=== PATIENT | female | born 1955 | race Caucasian/White ===

== ENCOUNTER 2017-08-12 06:27 | Inpatient (IN) | payer OTHER ==
[~2017-08-12 06:27] MED LIST: Sodium Chloride 0.9% 10 ML Syringe FLUSH PRN; Sodium Chloride 0.9% 2.5 ML Syringe FLUSH PRN
[2017-08-12] MEDS: Lactated Ringers 1,000 ML IV SCH ×2 (07:03→20:07)
[2017-08-12] MEDS ORDERED: Scopolamine 1.5 MG Transdermal Patch TRDERM PRN (07:09)
--- NOTE | 2017-08-12 07:09 | PCM.PREANE ---
Preanesthetic Assessment - Anesthesia/Transfusion/Family Hx Anesthesia History: Prior Anesthesia Reaction Family History of Anesthesia Reaction: No Transfusion History: Prior Transfusion Without Reaction Intubation History: Unknown - Review of Systems General: No Symptoms Pulmonary: No Symptoms Cardiovascular: No Symptoms Gastrointestinal: No Symptoms Neurological: No Symptoms Other: Reports: None - Physical Assessment Height: 1.55 m Weight: 76.657 kg ASA Class: 3 Mental Status: Alert & Oriented x3 Airway Class: Mallampati = 2 Dentition: Reports: Normal Dentition Thyro-Mental Finger Breadths: 2 Mouth Opening Finger Breadths: 3 ROM/Head Extension: Full Lungs: Clear to Auscultation, Normal Respiratory Effort Cardiovascular: Regular Rate, Regular Rhythm - Allergies Allergies/Adverse Reactions: Allergies Allergy/AdvReac Type Severity Reaction Status Date / Time antibiotics Allergy Other Uncoded 08/10/17 10:52 - Blood Blood Available: No - Anesthesia Plan Pre-Op Medication Ordered: None - Acknowledgements Anesthesia Type Planned: General Anesthesia Pt an Appropriate Candidate for the Planned Anesthesia: Yes Alternatives and Risks of Anesthesia Discussed w Pt/Guardian: Yes Pt/Guardian Understands and Agrees with Anesthesia Plan: Yes PreAnesthesia Questionnaire HEENT History: Reports: Other (See Below) Other HEENT History: wears glasses Gastrointestinal History: Reports: Inflammatory Bowel Disease Other Gastrointestinal History: hx of Ulcerative Colitis, s/p total colectomy with ileostomy Endocrine/Metabolic History: Reports: Obesity/BMI 30+ Hematologic History: Reports: Other (See Below) Other Hematologic History: states hx of systemic yeast infection after taking antibiotics in 2002- has not taken antibiotics since Oncologic (Cancer) History: Reports: Breast (infiltrating ductal carcinoma left breast) Other Oncologic History: currently - Past Surgical History Head Surgeries/Procedures: Reports: None GI Surgical History: Reports: Colon Other GI Surgeries/Procedures: hx of Subtotal Colectomy with Ileostomy Female Surgical History: Reports: Cystectomy Other Female Surgeries/Procedures: hx of ovarian cystectiomy - SUBSTANCE USE Smoking Status *Q: Never Smoker Recreational Drug Use History: No - HOME MEDS Home Medications: Home Meds Olga Lidia Aspirin 1 - 2 tab PO ASDIRECTED PRN 08/10/17 [History] [place] Extract 1 cap PO BID 08/10/17 [History] [facility] Essential Oils 1 cap PO DAILY 08/10/17 [History] - CURRENT (IN HOUSE) MEDS Current Meds: Current Medications Lactated Ringer's (Ringers, Lactated) 1,000 mls @ 125 mls/hr IV ASDIRECTED TOBY Last Admin: 08/12/17 07:03 Dose: 125 mls/hr Sodium Chloride (Saline Flush) 10 ml FLUSH ASDIRECTED PRN PRN Reason: Keep Vein Open Sodium Chloride (Saline Flush) 2.5 ml FLUSH ASDIRECTED PRN PRN Reason: Keep Vein Open
[2017-08-12] MEDS ORDERED: Propofol 200 MG/20 ML SDV ONE (07:17)
[2017-08-12] MEDS ORDERED: fentaNYL 250 MCG/5 ML SDV ONE (07:17)
[2017-08-12] MEDS ORDERED: Midazolam 1 MG/ML 2 ML SDV ONE (07:17)
[2017-08-12] MEDS ORDERED: Methylene Blue 50 MG/10 ML Ampule ONE (07:19)
[2017-08-12] MEDS ORDERED: Bupivacaine 0.5% 10 ML SDV ONE (07:20)
[2017-08-12] MEDS ORDERED: Rocuronium 10 MG/ML 10 ML Syringe ONE (07:26)
[2017-08-12] MEDS ORDERED: Ketorolac 30 MG/ML SDV ONE (07:26)
[2017-08-12] MEDS ORDERED: Phenylephrine/Normal Saline 100 MCG/ML 10 ML Syringe ONE ×2 (07:26→08:25)
[2017-08-12] MEDS ORDERED: Ondansetron 4 MG/2 ML SDV ONE (07:26)
[2017-08-12] MEDS ORDERED: Lidocaine 2% 5 ML SDV ONE (07:26)
[2017-08-12] MEDS ORDERED: Neostigmine Methylsulfate 1 MG/ML 5 ML Syringe ONE (07:26)
[2017-08-12] MEDS ORDERED: Glycopyrrolate 0.2 MG/ML SDV ONE (07:26)
[2017-08-12] MEDS ORDERED: Ondansetron 4 MG/2 ML SDV IVPUSH PRN (10:09)
[2017-08-12] MEDS ORDERED: Acetaminophen 325 MG Tab PO PRN (10:09)
[2017-08-12] MEDS: fentaNYL 100 MCG/2 ML SDV IVPUSH PRN ×2 (10:15→10:20)
--- NOTE | 2017-08-12 10:18 | PCM.OPNOTE ---
- General Post-Op/Procedure Note Date of Surgery/Procedure: 08/12/17 Operative Procedure(s): Left modified radical mastectomy with axillary lymph node dissection Pre Op Diagnosis: Infiltrating ductal carcinoma of the left breast. Post-Op Diagnosis: Same Anesthesia Technique: General ET Tube (ASA III) Primary Surgeon: Dusty Jackson Container Finisher: Alexander Sharpe Fluid Replacement, Intraop: 1,100 EBL in mLs: 200 Surgical Drain/Tube Type: Kieran Drain, Brian Luciano Flat Drain Condition: Good Free Text/Narrative:: Dictation [id number] CPT CODE [id number]
[2017-08-12] MEDS ORDERED: Morphine PF 30 MG/30 ML PCA Vial IV PRN (10:22)
--- NOTE | 2017-08-12 11:48 | PCM.POSTAN ---
POST ANESTHESIA ASSESSMENT - MENTAL STATUS Mental Status: Alert, Oriented - RESPIRATORY Respiratory Status: Respiratory Rate WNL, Airway Patent, O2 Saturation Stable - CARDIOVASCULAR CV Status: Pulse Rate WNL, Blood Pressure Stable - GASTROINTESTINAL GI Status: No Symptoms - PAIN Pain Score: 6 - POST OP HYDRATION Hydration Status: Adequate & Stable - OBSERVATIONS Free Text/Narrative:: no anesthesia problems
--- NOTE | 2017-08-12 14:29 | PCM.SURGPN ---
- General Info Date of Service: 08/12/17 Date of Surgery/Procedure: 08/12/17 POD#: 0 - Review of Systems Systems Review Comment:: Progressing post operatively. She did have some nausea initially and a small emesis but is feeling better now. Overall, her pain is well controlled with the WARRANTY CLERK. She has tolerated some sips of clears. - Patient Data Vitals - Most Recent: Last Vital Signs Temp 36.6 C 08/12/17 12:15 Pulse 65 08/12/17 12:45 Resp 18 08/12/17 12:45 BP 97/56 L 08/12/17 12:45 Pulse Ox 100 08/12/17 12:45 Weight - Most Recent: 76.657 kg I&O - Last 24 Hours: Intake & Output 08/11/17 08/12/17 08/12/17 22:59 06:59 14:59 Intake Total 3000 Output Total 30 Balance 2970 Med Orders - Current: Current Medications Acetaminophen (Tylenol) 650 mg PO Q4H PRN PRN Reason: Pain (Mild 1-3)/fever Hydrocodone Bitart/Acetaminophen ([place] 325-5 Mg) 2 tab PO Q4H PRN PRN Reason: Pain (severe 7-10) Fentanyl (Sublimaze) 50 - 100 mcg IVPUSH Q5M PRN PRN Reason: Pain (severe 7-10) Last Admin: 08/12/17 10:20 Dose: 50 mcg Lactated Ringer's (Ringers, Lactated) 1,000 mls @ 125 mls/hr IV ASDIRECTED TOBY Last Admin: 08/12/17 07:03 Dose: 125 mls/hr Morphine Sulfate (Morphine Clean Up Helper Banquet 30 Mg In 30 Ml) 0 mg IV ASDIRECTED PRN; Protocol PRN Reason: Pain (severe 7-10) Last Admin: 08/12/17 10:45 Dose: 30 mg Ondansetron HCl (Zofran) 4 mg IVPUSH Q6H PRN PRN Reason: Nausea/Vomiting Last Admin: 08/12/17 11:51 Dose: 4 mg Scopolamine (Transderm-Scop) 1.5 mg TRDERM Q72H PRN PRN Reason: Nausea Last Admin: 08/12/17 07:19 Dose: 1.5 mg Sodium Chloride (Saline Flush) 10 ml FLUSH ASDIRECTED PRN PRN Reason: Keep Vein Open Sodium Chloride (Saline Flush) 2.5 ml FLUSH ASDIRECTED PRN PRN Reason: Keep Vein Open Discontinued Medications Bupivacaine HCl (Sensorcaine-Mpf 0.5%) Confirm Administered Dose 10 ml .ROUTE .STK-MED ONE Stop: 08/12/17 07:21 Fentanyl (Sublimaze) Confirm Administered Dose 250 mcg .ROUTE .STK-MED ONE Stop: 08/12/17 07:18 Glycopyrrolate (Robinul) Confirm Administered Dose 0.8 mg .ROUTE .STK-MED ONE Stop: 08/12/17 07:27 Ketorolac Tromethamine (Toradol) Confirm Administered Dose 30 mg .ROUTE .STK- MED ONE Stop: 08/12/17 07:27 Lidocaine (Xylocaine-Mpf 2%) Confirm Administered Dose 5 ml .ROUTE .STK-MED ONE Stop: 08/12/17 07:27 Methylene Blue (Provayblue) Confirm Administered Dose 50 mg .ROUTE .STK-MED ONE Stop: 08/12/17 07:20 Midazolam HCl (Versed 1 Mg/Ml) Confirm Administered Dose 2 mg .ROUTE .STK-MED ONE Stop: 08/12/17 07:18 Neostigmine Methylsulfate (Neostigmine) Confirm Administered Dose 5 mg .ROUTE .STK-MED ONE Stop: 08/12/17 07:27 Ondansetron HCl (Zofran) Confirm Administered Dose 4 mg .ROUTE .STK-MED ONE Stop: 08/12/17 07:27 Phenylephrine HCl (Phenylephrine In Ns 100 Mcg/Ml) Confirm Administered Dose 1 mg .ROUTE .STK-MED ONE Stop: 08/12/17 07:27 Phenylephrine HCl (Phenylephrine In Ns 100 Mcg/Ml) Confirm Administered Dose 1 mg .ROUTE .STK-MED ONE Stop: 08/12/17 08:26 Propofol (Diprivan 20 Ml) Confirm Administered Dose 200 mg .ROUTE .STK-MED ONE Stop: 08/12/17 07:18 Rocuronium [place] (Zemuron) Confirm Administered Dose 100 mg .ROUTE .STK-MED ONE Stop: 08/12/17 07:27 - Exam Wound/Incisions: Other (Left mastectomy site dressing is c/d/i. Drains x2 with serosanguinous output. ) General: Alert Lungs: Other (Breathing comfortably on NC. ) Cardiovascular: Regular Rate GI/Abdominal Exam: Soft Skin: Warm, Dry - Problem List Review Problem List Initiated/Reviewed/Updated: Yes - My Orders Last 24 Hours: Active Orders 24 hr Category Date Time Status Patient Status [ADT] Routine ADT 08/12/17 06:00 Active Patient Status [ADT] Routine ADT 08/12/17 10:09 Active Ambulate [RC] PER UNIT ROUTINE Care 08/12/17 10:15 Active Communication Order [RC] ROUTINE Care 08/12/17 06:00 Active Communication Order [RC] STAT Care 08/12/17 10:22 Active Intake and Output [RC] Q12H Care 08/12/17 10:10 Active Notify Provider [RC] PRN Care 08/12/17 10:22 Active WARRANTY CLERK Record [RC] Q4H Care 08/12/17 10:22 Active Pulse Oximetry [RC] CONTINUOUS Care 08/12/17 10:22 Active RT Incentive Spirometry [RC] Q1HWA Care 08/12/17 10:26 Active VTE/DVT Education [RC] PER UNIT ROUTINE Care 08/12/17 10:09 Active Vital Signs [RC] Q4H Care 08/12/17 10:09 Active Clear Liquid Diet [DIET] Diet 08/12/17 Lunch Active Soft Diet [DIET] Diet 08/12/17 Dinner Ordered Acetaminophen [Tylenol] Med 08/12/17 10:09 Active 650 mg PO Q4H PRN Acetaminophen/HYDROcodone [[place] 325-5 MG] Med 08/12/17 14:19 Ordered 2 tab PO Q4H PRN Lactated Ringers [Ringers, Lactated] 1,000 ml Med 08/12/17 06:15 Active IV ASDIRECTED Morphine PF [Morphine WARRANTY CLERK 30 MG in 30 ML] Med 08/12/17 10:22 Active See Protocol IV ASDIRECTED PRN Ondansetron [Zofran] Med 08/12/17 10:09 Active 4 mg IVPUSH Q6H PRN Scopolamine [Transderm-Scop] Med 08/12/17 07:09 Active 1.5 mg TRDERM Q72H PRN Sodium Chloride 0.9% [Saline Flush] Med 08/12/17 06:00 Active 10 ml FLUSH ASDIRECTED PRN Sodium Chloride 0.9% [Saline Flush] Med 08/12/17 06:00 Active 2.5 ml FLUSH ASDIRECTED PRN fentaNYL [Sublimaze] Med 08/12/17 10:15 Active 50 - 100 mcg IVPUSH Q5M PRN Medication Discontinuation Instructions [OM.PC] Stat Oth 08/12/17 10:22 Ordered Sequential Compression Device [OM.PC] Routine Oth 08/12/17 06:00 Ordered Medication Orders Acetaminophen (Tylenol) 650 mg PO Q4H PRN PRN Reason: Pain (Mild 1-3)/fever Hydrocodone Bitart/Acetaminophen ([place] 325-5 Mg) 2 tab PO Q4H PRN PRN Reason: Pain (severe 7-10) Fentanyl (Sublimaze) 50 - 100 mcg IVPUSH Q5M PRN PRN Reason: Pain (severe 7-10) Last Admin: 08/12/17 10:20 Dose: 50 mcg Admin: 08/12/17 10:15 Dose: 50 mcg Lactated Ringer's (Ringers, Lactated) 1,000 mls @ 125 mls/hr IV ASDIRECTED TOBY Last Admin: 08/12/17 07:03 Dose: 125 mls/hr Morphine Sulfate (Morphine Clean Up Helper Banquet 30 Mg In 30 Ml) 0 mg IV ASDIRECTED PRN; Protocol PRN Reason: Pain (severe 7-10) Last Admin: 08/12/17 10:45 Dose: 30 mg Ondansetron HCl (Zofran) 4 mg IVPUSH Q6H PRN PRN Reason: Nausea/Vomiting Last Admin: 08/12/17 11:51 Dose: 4 mg Scopolamine (Transderm-Scop) 1.5 mg TRDERM Q72H PRN PRN Reason: Nausea Last Admin: 08/12/17 07:19 Dose: 1.5 mg Sodium Chloride (Saline Flush) 10 ml FLUSH ASDIRECTED PRN PRN Reason: Keep Vein Open Sodium Chloride (Saline Flush) 2.5 ml FLUSH ASDIRECTED PRN PRN Reason: Keep Vein Open - Assessment Assessment (Free Text/Narrative):: 62 yr old female POD#0 left modified radical mastectomy with axillary lymph node dissection. PARAMJIT drains with appropriate, serosanguinous, 30ml since surgery. Doing well post operatively. Pain controlled. Initially had some bradycardia and lower blood pressures which are improving. - Plan Plan (Free Text/Narrative):: Advance to soft diet as tolerated Oral pain regimen with Tylenol and [place] stratified for mild, moderate, severe pain Continue morphine WARRANTY CLERK prn for severe pain uncontrolled with oral medications Continue LR@125ml/hr Encourage ambulation and OOB SCDs Continue drains to bulb suction
--- NOTE | 2017-08-12 16:31 | OR ---
SURGEON: Dusty Jackson M.D. DATE OF PROCEDURE: 08/12/2017 OPERATION PERFORMED: Left modified radical mastectomy with axillary lymph node dissection. WOODWORKING MACHINE OFFBEARER: Dr. Sharpe, PGY-2. ANESTHESIA: General endotracheal. ASA CLASSIFICATION: III. PREOPERATIVE DIAGNOSIS: Biopsy-proven carcinoma of the left breast with a very large tumor mass. POSTOPERATIVE DIAGNOSIS: Biopsy-proven carcinoma of the left breast with a very large tumor mass. ESTIMATED BLOOD LOSS: 200 mL. INTRAOPERATIVE FLUID REPLACEMENT: 1100 mL of crystalloid. DESCRIPTION OF PROCEDURE: The patient was taken to the operating room and placed on the operating table in the supine position. Time-out was called for appropriate identification of the patient and procedure. Thigh-high TEDs and sequential compression boots were placed. Following satisfactory attainment of general endotracheal anesthesia, the left chest was prepped with DuraPrep solution. The surgical site had been marked prior to the patient entering the operating room. Following the skin prepped with DuraPrep, sterile drapes were applied. The skin incision was marked out on the left breast to include the nipple-areolar complex. The skin incision was then made and deepened through the subcutaneous tissue. The patient did have a large hematoma inferolaterally from her breast biopsy. This fluid was aspirated. Once we had completed the skin flaps, the superior flap was raised from medial to lateral to the clavicle, and inferiorly, the skin flap was raised to the costal margin. Once appropriate skin flaps were created, the breast was dissected off the chest wall using electrocautery. Bleeding sites were electrocoagulated. Dissection again was carried out from medial to lateral beginning at the sternal border and extending laterally to the latissimus dorsi muscle. Once the breast was dissected away from the chest wall and into the axilla, there was some bleeding noted and vessels were suture ligated with 2-0 silk. Dissection was carried up to the axillary vein and the contents were swept inferiorly. Multiple large firm nodes were encountered and care was taken to remove all of those lymph nodes. The wound was then inspected for hemostasis, and no other bleeding was noted. Hemoclips were placed towards the apex of the excision site. Once the wound was irrigated with sterile saline solution and no further bleeding noted, a Kieran drain was placed through a separate skin incision into the left axilla and a flat Brian-Luciano was placed through medial skin incision underlying the flap. These were secured to the skin with 2-0 silk suture. The wound was again inspected for hemostasis and small bleeding sites were electrocoagulated. There was an area in the superior flap where the tumor did involve the skin and this was separately excised using electrocautery and sent as a separate specimen. Once all that was accomplished and the wound again inspected. No other bleeding was noted. The incision was then closed in 2 layers approximating the subcutaneous tissue with 3-0 Polysorb and the skin with skin clips. Drain sponges were placed about the drains. The surgical site was then dressed with Adaptic, fluffs, and Mefix tape. The drains had been connected to the suction. There was some bleeding noted from the left axillary drain, but not an inordinate amount. Following emergence from anesthesia and extubation, the patient was taken to the recovery room in stable condition. CLARE CRUZ /[id number]
[2017-08-12] MEDS: Acetaminophen/HYDROcodone 325-5 MG Tab PO PRN ×2 (17:03→23:17)
[2017-08-13] MEDS: Lactated Ringers 1,000 ML IV SCH (05:11)
--- NOTE | 2017-08-13 07:45 | PCM48HPAN ---
Post Anesthesia Note - EVALUATION WITHIN 48HRS OF ANESTHETIC Vital Signs in Normal Range: Yes Patient Participated in Evaluation: Yes Respiratory Function Stable: Yes Airway Patent: Yes Cardiovascular Function Stable: Yes Hydration Status Stable: Yes Pain Control Satisfactory: Yes Nausea and Vomiting Control Satisfactory: Yes Mental Status Recovered: Yes Resp Rate: 12
--- NOTE | 2017-08-13 08:38 | PCM.SURGPN ---
<AnnemarieAlexander Rigo - Last Filed: 08/13/17 08:39> - General Info Date of Service: 08/13/17 Date of Surgery/Procedure: 08/12/17 POD#: 1 (Doing well this am. No acute events overnight. Pain is well controlled with minimal additional use of TECHNICAL SUPPORT TECHNICIAN. Tried [place] which made her drowsy but controlled pain. Pain localized to axilla on left. Minimal numbness on anterior forearm. No other numbness or tingling. Denies arm weakness. Up ambulating. Tolerating diet with no nausea or vomiting. Voiding on own, ostomy functioning. Denies fever, chill, chest pain, or SOB.) - Patient Data Vitals - Most Recent: Last Vital Signs Temp 36.8 C 08/13/17 07:43 Pulse 78 08/13/17 07:43 Resp 12 08/13/17 07:45 BP 109/52 L 08/13/17 07:43 Pulse Ox 94 L 08/13/17 07:43 Weight - Most Recent: 169 lb I&O - Last 24 Hours: Intake & Output 08/12/17 08/13/17 08/13/17 22:59 06:59 14:59 Intake Total 2163 800 Output Total 40 1095 Balance 2123 -295 Med Orders - Current: Current Medications Acetaminophen (Tylenol) 650 mg PO Q4H PRN PRN Reason: Pain (Mild 1-3)/fever Hydrocodone Bitart/Acetaminophen ([place] 325-5 Mg) 2 tab PO Q4H PRN PRN Reason: Pain (severe 7-10) Last Admin: 08/12/17 23:17 Dose: 2 tab Fentanyl (Sublimaze) 50 - 100 mcg IVPUSH Q5M PRN PRN Reason: Pain (severe 7-10) Last Admin: 08/12/17 10:20 Dose: 50 mcg Lactated Ringer's (Ringers, Lactated) 1,000 mls @ 125 mls/hr IV ASDIRECTED TOBY Last Admin: 08/13/17 05:11 Dose: 125 mls/hr Morphine Sulfate (Morphine Brand Marketing Coordinator 30 Mg In 30 Ml) 0 mg IV ASDIRECTED PRN; Protocol PRN Reason: Pain (severe 7-10) Last Admin: 08/12/17 10:45 Dose: 30 mg Ondansetron HCl (Zofran) 4 mg IVPUSH Q6H PRN PRN Reason: Nausea/Vomiting Last Admin: 08/12/17 11:51 Dose: 4 mg Scopolamine (Transderm-Scop) 1.5 mg TRDERM Q72H PRN PRN Reason: Nausea Last Admin: 08/12/17 07:19 Dose: 1.5 mg Sodium Chloride (Saline Flush) 10 ml FLUSH ASDIRECTED PRN PRN Reason: Keep Vein Open Sodium Chloride (Saline Flush) 2.5 ml FLUSH ASDIRECTED PRN PRN Reason: Keep Vein Open Discontinued Medications Bupivacaine HCl (Sensorcaine-Mpf 0.5%) Confirm Administered Dose 10 ml .ROUTE .STK-MED ONE Stop: 08/12/17 07:21 Fentanyl (Sublimaze) Confirm Administered Dose 250 mcg .ROUTE .STK-MED ONE Stop: 08/12/17 07:18 Glycopyrrolate (Robinul) Confirm Administered Dose 0.8 mg .ROUTE .STK-MED ONE Stop: 08/12/17 07:27 Ketorolac Tromethamine (Toradol) Confirm Administered Dose 30 mg .ROUTE .STK- MED ONE Stop: 08/12/17 07:27 Lidocaine (Xylocaine-Mpf 2%) Confirm Administered Dose 5 ml .ROUTE .STK-MED ONE Stop: 08/12/17 07:27 Methylene Blue (Provayblue) Confirm Administered Dose 50 mg .ROUTE .STK-MED ONE Stop: 08/12/17 07:20 Midazolam HCl (Versed 1 Mg/Ml) Confirm Administered Dose 2 mg .ROUTE .STK-MED ONE Stop: 08/12/17 07:18 Neostigmine Methylsulfate (Neostigmine) Confirm Administered Dose 5 mg .ROUTE .STK-MED ONE Stop: 08/12/17 07:27 Ondansetron HCl (Zofran) Confirm Administered Dose 4 mg .ROUTE .STK-MED ONE Stop: 08/12/17 07:27 Phenylephrine HCl (Phenylephrine In Ns 100 Mcg/Ml) Confirm Administered Dose 1 mg .ROUTE .STK-MED ONE Stop: 08/12/17 07:27 Phenylephrine HCl (Phenylephrine In Ns 100 Mcg/Ml) Confirm Administered Dose 1 mg .ROUTE .STK-MED ONE Stop: 08/12/17 08:26 Propofol (Diprivan 20 Ml) Confirm Administered Dose 200 mg .ROUTE .STK-MED ONE Stop: 08/12/17 07:18 Rocuronium [place] (Zemuron) Confirm Administered Dose 100 mg .ROUTE .STK-MED ONE Stop: 08/12/17 07:27 - Exam Wound/Incisions: Dressing Dry and Intact, No Drainage, Other (Drains x2 with serosanguinous output. ) General: Alert, No Acute Distress Lungs: Clear to Auscultation, Normal Respiratory Effort Cardiovascular: Regular Rate, Regular Rhythm GI/Abdominal Exam: Soft, Other (Ostomy in place.) Extremities: Other (Left upper extremity with numbness over anterior aspect of forearm. Gross sensation and motor intact distally. Extremity is warm and perfused with no significant edema. Lower extremities are non-tender with no significant edema. ) Skin: Warm, Dry, Intact - Problem List Review Problem List Initiated/Reviewed/Updated: Yes - My Orders Last 24 Hours: Active Orders 24 hr Category Date Time Status Patient Status [ADT] Routine ADT 08/12/17 10:09 Active Ambulate [RC] PER UNIT ROUTINE Care 08/12/17 10:15 Active Communication Order [RC] STAT Care 08/12/17 10:22 Active Intake and Output [RC] Q12H Care 08/12/17 10:10 Active Notify Provider [RC] PRN Care 08/12/17 10:22 Active TECHNICAL SUPPORT TECHNICIAN Record [RC] Q12H Care 08/12/17 10:22 Active Pulse Oximetry [RC] CONTINUOUS Care 08/12/17 10:22 Active RT Incentive Spirometry [RC] Q1HWA Care 08/12/17 10:26 Active VTE/DVT Education [RC] PER UNIT ROUTINE Care 08/12/17 10:09 Active Vital Signs [RC] Q4H Care 08/12/17 10:09 Active Soft Diet [DIET] Diet 08/12/17 Dinner Active Acetaminophen [Tylenol] Med 08/12/17 10:09 Active 650 mg PO Q4H PRN Acetaminophen/HYDROcodone [[place] 325-5 MG] Med 08/12/17 14:19 Active 2 tab PO Q4H PRN Morphine PF [Morphine TECHNICAL SUPPORT TECHNICIAN 30 MG in 30 ML] Med 08/12/17 10:22 Active See Protocol IV ASDIRECTED PRN Ondansetron [Zofran] Med 08/12/17 10:09 Active 4 mg IVPUSH Q6H PRN fentaNYL [Sublimaze] Med 08/12/17 10:15 Active 50 - 100 mcg IVPUSH Q5M PRN Medication Discontinuation Instructions [OM.PC] Stat Oth 08/12/17 10:22 Ordered Medication Orders Acetaminophen (Tylenol) 650 mg PO Q4H PRN PRN Reason: Pain (Mild 1-3)/fever Hydrocodone Bitart/Acetaminophen ([place] 325-5 Mg) 2 tab PO Q4H PRN PRN Reason: Pain (severe 7-10) Last Admin: 08/12/17 23:17 Dose: 2 tab Admin: 08/12/17 17:03 Dose: 2 tab Fentanyl (Sublimaze) 50 - 100 mcg IVPUSH Q5M PRN PRN Reason: Pain (severe 7-10) Last Admin: 08/12/17 10:20 Dose: 50 mcg Admin: 08/12/17 10:15 Dose: 50 mcg Lactated Ringer's (Ringers, Lactated) 1,000 mls @ 125 mls/hr IV ASDIRECTED TOBY Last Admin: 08/13/17 05:11 Dose: 125 mls/hr Infusion: 08/13/17 04:07 Dose: 125 mls/hr Admin: 08/12/17 20:07 Dose: 125 mls/hr Infusion: 08/12/17 15:03 Dose: 125 mls/hr Admin: 08/12/17 07:03 Dose: 125 mls/hr Morphine Sulfate (Morphine Brand Marketing Coordinator 30 Mg In 30 Ml) 0 mg IV ASDIRECTED PRN; Protocol PRN Reason: Pain (severe 7-10) Last Admin: 08/12/17 10:45 Dose: 30 mg Ondansetron HCl (Zofran) 4 mg IVPUSH Q6H PRN PRN Reason: Nausea/Vomiting Last Admin: 08/12/17 11:51 Dose: 4 mg Scopolamine (Transderm-Scop) 1.5 mg TRDERM Q72H PRN PRN Reason: Nausea Last Admin: 08/12/17 07:19 Dose: 1.5 mg Sodium Chloride (Saline Flush) 10 ml FLUSH ASDIRECTED PRN PRN Reason: Keep Vein Open Sodium Chloride (Saline Flush) 2.5 ml FLUSH ASDIRECTED PRN PRN Reason: Keep Vein Open - Assessment Assessment (Free Text/Narrative):: 62 yr old female POD#1 left modified radical mastectomy with axillary node dissection. Doing well this am. Progressing and appropriate for discharge. Afebrile, hemodynamically stable. - Plan Plan (Free Text/Narrative):: Plan for discharge today Oral pain regimen Continue drains on discharge SLIV Follow up in clinic next week <Dusty Jackson L - Last Filed: 08/13/17 08:57> - Patient Data Vitals - Most Recent: Last Vital Signs Temp 98.3 F 08/13/17 07:43 Pulse 78 08/13/17 07:43 Resp 12 08/13/17 07:45 BP 109/52 L 08/13/17 07:43 Pulse Ox 94 L 08/13/17 07:43 I&O - Last 24 Hours: Intake & Output 08/12/17 08/13/17 08/13/17 19:59 03:59 11:59 Intake Total 1163 1000 800 Output Total 40 1095 Balance 1123 1000 -295 Med Orders - Current: Current Medications Acetaminophen (Tylenol) 650 mg PO Q4H PRN PRN Reason: Pain (Mild 1-3)/fever Hydrocodone Bitart/Acetaminophen ([place] 325-5 Mg) 2 tab PO Q4H PRN PRN Reason: Pain (severe 7-10) Last Admin: 08/12/17 23:17 Dose: 2 tab Fentanyl (Sublimaze) 50 - 100 mcg IVPUSH Q5M PRN PRN Reason: Pain (severe 7-10) Last Admin: 08/12/17 10:20 Dose: 50 mcg Lactated Ringer's (Ringers, Lactated) 1,000 mls @ 125 mls/hr IV ASDIRECTED TOBY Last Admin: 08/13/17 05:11 Dose: 125 mls/hr Morphine Sulfate (Morphine Brand Marketing Coordinator 30 Mg In 30 Ml) 0 mg IV ASDIRECTED PRN; Protocol PRN Reason: Pain (severe 7-10) Last Admin: 08/12/17 10:45 Dose: 30 mg Ondansetron HCl (Zofran) 4 mg IVPUSH Q6H PRN PRN Reason: Nausea/Vomiting Last Admin: 08/12/17 11:51 Dose: 4 mg Scopolamine (Transderm-Scop) 1.5 mg TRDERM Q72H PRN PRN Reason: Nausea Last Admin: 08/12/17 07:19 Dose: 1.5 mg Sodium Chloride (Saline Flush) 10 ml FLUSH ASDIRECTED PRN PRN Reason: Keep Vein Open Sodium Chloride (Saline Flush) 2.5 ml FLUSH ASDIRECTED PRN PRN Reason: Keep Vein Open Discontinued Medications Bupivacaine HCl (Sensorcaine-Mpf 0.5%) Confirm Administered Dose 10 ml .ROUTE .STK-MED ONE Stop: 08/12/17 07:21 Fentanyl (Sublimaze) Confirm Administered Dose 250 mcg .ROUTE .STK-MED ONE Stop: 08/12/17 07:18 Glycopyrrolate (Robinul) Confirm Administered Dose 0.8 mg .ROUTE .STK-MED ONE Stop: 08/12/17 07:27 Ketorolac Tromethamine (Toradol) Confirm Administered Dose 30 mg .ROUTE .STK- MED ONE Stop: 08/12/17 07:27 Lidocaine (Xylocaine-Mpf 2%) Confirm Administered Dose 5 ml .ROUTE .STK-MED ONE Stop: 08/12/17 07:27 Methylene Blue (Provayblue) Confirm Administered Dose 50 mg .ROUTE .STK-MED ONE Stop: 08/12/17 07:20 Midazolam HCl (Versed 1 Mg/Ml) Confirm Administered Dose 2 mg .ROUTE .STK-MED ONE Stop: 08/12/17 07:18 Neostigmine Methylsulfate (Neostigmine) Confirm Administered Dose 5 mg .ROUTE .STK-MED ONE Stop: 08/12/17 07:27 Ondansetron HCl (Zofran) Confirm Administered Dose 4 mg .ROUTE .STK-MED ONE Stop: 08/12/17 07:27 Phenylephrine HCl (Phenylephrine In Ns 100 Mcg/Ml) Confirm Administered Dose 1 mg .ROUTE .STK-MED ONE Stop: 08/12/17 07:27 Phenylephrine HCl (Phenylephrine In Ns 100 Mcg/Ml) Confirm Administered Dose 1 mg .ROUTE .STK-MED ONE Stop: 08/12/17 08:26 Propofol (Diprivan 20 Ml) Confirm Administered Dose 200 mg .ROUTE .STK-MED ONE Stop: 08/12/17 07:18 Rocuronium [place] (Zemuron) Confirm Administered Dose 100 mg .ROUTE .STK-MED ONE Stop: 08/12/17 07:27 - My Orders Last 24 Hours: Active Orders 24 hr Category Date Time Status Patient Status [ADT] Routine ADT 08/12/17 10:09 Active Ambulate [RC] PER UNIT ROUTINE Care 08/12/17 10:15 Active Communication Order [RC] STAT Care 08/12/17 10:22 Active Intake and Output [RC] Q12H Care 08/12/17 10:10 Active Notify Provider [RC] PRN Care 08/12/17 10:22 Active TECHNICAL SUPPORT TECHNICIAN Record [RC] Q12H Care 08/12/17 10:22 Active Pulse Oximetry [RC] CONTINUOUS Care 08/12/17 10:22 Active RT Incentive Spirometry [RC] Q1HWA Care 08/12/17 10:26 Active VTE/DVT Education [RC] PER UNIT ROUTINE Care 08/12/17 10:09 Active Vital Signs [RC] Q4H Care 08/12/17 10:09 Active Soft Diet [DIET] Diet 08/12/17 Dinner Active Acetaminophen [Tylenol] Med 08/12/17 10:09 Active 650 mg PO Q4H PRN Acetaminophen/HYDROcodone [[place] 325-5 MG] Med 08/12/17 14:19 Active 2 tab PO Q4H PRN Morphine PF [Morphine TECHNICAL SUPPORT TECHNICIAN 30 MG in 30 ML] Med 08/12/17 10:22 Active See Protocol IV ASDIRECTED PRN Ondansetron [Zofran] Med 08/12/17 10:09 Active 4 mg IVPUSH Q6H PRN fentaNYL [Sublimaze] Med 08/12/17 10:15 Active 50 - 100 mcg IVPUSH Q5M PRN Medication Discontinuation Instructions [OM.PC] Stat Oth 08/12/17 10:22 Ordered Medication Orders Acetaminophen (Tylenol) 650 mg PO Q4H PRN PRN Reason: Pain (Mild 1-3)/fever Hydrocodone Bitart/Acetaminophen ([place] 325-5 Mg) 2 tab PO Q4H PRN PRN Reason: Pain (severe 7-10) Last Admin: 08/12/17 23:17 Dose: 2 tab Admin: 08/12/17 17:03 Dose: 2 tab Fentanyl (Sublimaze) 50 - 100 mcg IVPUSH Q5M PRN PRN Reason: Pain (severe 7-10) Last Admin: 08/12/17 10:20 Dose: 50 mcg Admin: 08/12/17 10:15 Dose: 50 mcg Lactated Ringer's (Ringers, Lactated) 1,000 mls @ 125 mls/hr IV ASDIRECTED TOBY Last Admin: 08/13/17 05:11 Dose: 125 mls/hr Infusion: 08/13/17 04:07 Dose: 125 mls/hr Admin: 08/12/17 20:07 Dose: 125 mls/hr Infusion: 08/12/17 15:03 Dose: 125 mls/hr Admin: 08/12/17 07:03 Dose: 125 mls/hr Morphine Sulfate (Morphine Brand Marketing Coordinator 30 Mg In 30 Ml) 0 mg IV ASDIRECTED PRN; Protocol PRN Reason: Pain (severe 7-10) Last Admin: 08/12/17 10:45 Dose: 30 mg Ondansetron HCl (Zofran) 4 mg IVPUSH Q6H PRN PRN Reason: Nausea/Vomiting Last Admin: 08/12/17 11:51 Dose: 4 mg Scopolamine (Transderm-Scop) 1.5 mg TRDERM Q72H PRN PRN Reason: Nausea Last Admin: 08/12/17 07:19 Dose: 1.5 mg Sodium Chloride (Saline Flush) 10 ml FLUSH ASDIRECTED PRN PRN Reason: Keep Vein Open Sodium Chloride (Saline Flush) 2.5 ml FLUSH ASDIRECTED PRN PRN Reason: Keep Vein Open - Plan Plan (Free Text/Narrative):: Patient seen and examined with Dr. Sharpe. Findings reviewed. I agree with his assessment and plan.
--- NOTE | 2017-08-13 09:03 | PCM.DCSUM1 ---
Discharge Summary - Hospital Course Free Text/Narrative:: Mrs. Hackett is a 62 yr old female who was admitted on 08/12/17 following left modified radical mastectomy with axillary node dissection. She tolerated the procedure well. Her post operative course was uncomplicated. Her pain was well controlled with a TIMBER SUPERVISOR and she transitioned to an oral pain regimen. She was ambulating, voiding, tolerating diet, pain was controlled, and her surgical site /drains were appropriate POD#1. She was ready for discharge. - Discharge Data Discharge Date: 08/13/17 Discharge Disposition: Home, Self-Care 01 Condition: Good - Patient Summary/Data Operative Procedure(s) Performed: Left modified radical mastectomy with axillary lymph node dissection - Patient Instructions Diet: Regular Diet as Tolerated Activity: No Lifting Over 10 Pounds, No Strenuous Activities Driving: Do Not Drive (while taking narcotic pain medications) Showering/Bathing: May Shower (Once you have removed the dressings. Do not soak the incision for two weeks after surgery. ) Wound/Incision Care: Keep Operative Site/Wound Site Clean and Dry Notify Provider of: Fever, Increased Pain, Swelling and Redness, Drainage, Nausea and/or Vomiting - Discharge Plan Prescriptions/Med Rec: Acetaminophen/HYDROcodone [[place] 325-5 MG] 1 tab PO Q4H PRN #30 tablet PRN Reason: Pain Home Medications: Home Meds Olga Lidia Aspirin 1 - 2 tab PO ASDIRECTED PRN 08/10/17 [History] [place] Norphlet Extract 1 cap PO BID 08/10/17 [History] Wellness Essential Oils 1 cap PO DAILY 08/10/17 [History] Acetaminophen/HYDROcodone [[place] 325-5 MG] 1 tab PO Q4H PRN #30 tablet 08/12/17 [Rx] Patient Handouts: Acetaminophen; Hydrocodone tablets or capsules, Surgical Drain Home Care Referrals: Dusty Jackson MD [Physician] - 08/18/17 3:25 pm - Patient Data Vitals - Most Recent: Last Vital Signs Temp 36.8 C 08/13/17 07:43 Pulse 78 08/13/17 07:43 Resp 12 08/13/17 07:45 BP 109/52 L 08/13/17 07:43 Pulse Ox 94 L 08/13/17 07:43 Weight - Most Recent: 76.657 kg I&O - Last 24 hours: Intake & Output 08/12/17 08/13/17 08/13/17 22:59 06:59 14:59 Intake Total 2163 800 Output Total 40 1095 Balance 2123 -295 Med Orders - Current: Current Medications Acetaminophen (Tylenol) 650 mg PO Q4H PRN PRN Reason: Pain (Mild 1-3)/fever Hydrocodone Bitart/Acetaminophen ([place] 325-5 Mg) 2 tab PO Q4H PRN PRN Reason: Pain (severe 7-10) Last Admin: 08/12/17 23:17 Dose: 2 tab Fentanyl (Sublimaze) 50 - 100 mcg IVPUSH Q5M PRN PRN Reason: Pain (severe 7-10) Last Admin: 08/12/17 10:20 Dose: 50 mcg Lactated Ringer's (Ringers, Lactated) 1,000 mls @ 125 mls/hr IV ASDIRECTED TOBY Last Admin: 08/13/17 05:11 Dose: 125 mls/hr Morphine Sulfate (Morphine Barrel Bander 30 Mg In 30 Ml) 0 mg IV ASDIRECTED PRN; Protocol PRN Reason: Pain (severe 7-10) Last Admin: 08/12/17 10:45 Dose: 30 mg Ondansetron HCl (Zofran) 4 mg IVPUSH Q6H PRN PRN Reason: Nausea/Vomiting Last Admin: 08/12/17 11:51 Dose: 4 mg Scopolamine (Transderm-Scop) 1.5 mg TRDERM Q72H PRN PRN Reason: Nausea Last Admin: 08/12/17 07:19 Dose: 1.5 mg Sodium Chloride (Saline Flush) 10 ml FLUSH ASDIRECTED PRN PRN Reason: Keep Vein Open Sodium Chloride (Saline Flush) 2.5 ml FLUSH ASDIRECTED PRN PRN Reason: Keep Vein Open Discontinued Medications Bupivacaine HCl (Sensorcaine-Mpf 0.5%) Confirm Administered Dose 10 ml .ROUTE .STK-MED ONE Stop: 08/12/17 07:21 Fentanyl (Sublimaze) Confirm Administered Dose 250 mcg .ROUTE .STK-MED ONE Stop: 08/12/17 07:18 Glycopyrrolate (Robinul) Confirm Administered Dose 0.8 mg .ROUTE .STK-MED ONE Stop: 08/12/17 07:27 Ketorolac Tromethamine (Toradol) Confirm Administered Dose 30 mg .ROUTE .STK- MED ONE Stop: 08/12/17 07:27 Lidocaine (Xylocaine-Mpf 2%) Confirm Administered Dose 5 ml .ROUTE .STK-MED ONE Stop: 08/12/17 07:27 Methylene Blue (Provayblue) Confirm Administered Dose 50 mg .ROUTE .STK-MED ONE Stop: 08/12/17 07:20 Midazolam HCl (Versed 1 Mg/Ml) Confirm Administered Dose 2 mg .ROUTE .STK-MED ONE Stop: 08/12/17 07:18 Neostigmine Methylsulfate (Neostigmine) Confirm Administered Dose 5 mg .ROUTE .STK-MED ONE Stop: 08/12/17 07:27 Ondansetron HCl (Zofran) Confirm Administered Dose 4 mg .ROUTE .STK-MED ONE Stop: 08/12/17 07:27 Phenylephrine HCl (Phenylephrine In Ns 100 Mcg/Ml) Confirm Administered Dose 1 mg .ROUTE .ST-MED ONE Stop: 08/12/17 07:27 Phenylephrine HCl (Phenylephrine In Ns 100 Mcg/Ml) Confirm Administered Dose 1 mg .ROUTE .STK-MED ONE Stop: 08/12/17 08:26 Propofol (Diprivan 20 Ml) Confirm Administered Dose 200 mg .ROUTE .STK-MED ONE Stop: 08/12/17 07:18 Rocuronium [place] (Zemuron) Confirm Administered Dose 100 mg .ROUTE .STK-MED ONE Stop: 08/12/17 07:27
== END 2017-08-13 09:40 | disposition home or self-care (01) | DRG 581 ==
LOC: MW.MS 06:27
PROVIDERS: ADMIT Surgery; ATTEND Surgery
PROC: 0HTU0ZZ Resection of Left Breast, Open Approach (ICD-10-PCS; principal; 2017-08-12)
PROC: 07B60ZZ Excision of Left Axillary Lymphatic, Open Approach (ICD-10-PCS; 2017-08-12)
DX: C50.912 Malignant neoplasm of unspecified site of left female breast (principal)
CPT/HCPCS: A9270-GY; J1885; J2250; J2274; J2405; J2704; J3010; J7120

== ENCOUNTER 2021-04-10 10:08 | Emergency (ER) | payer BC, MEDICARE ==
[2021-04-10] MEDS ORDERED: Sodium Chloride 0.9% 10 ML Syringe FLUSH PRN (10:38)
[2021-04-10] MEDS ORDERED: Sodium Chloride 0.9% 2.5 ML Syringe FLUSH PRN (10:38)
[2021-04-10] MEDS ORDERED: Ondansetron 4 MG/2 ML SDV IVPUSH ONE (10:39)
[2021-04-10] MEDS ORDERED: Sodium Chloride 0.9% 1,000 ML IV ONE (10:39)
--- NOTE | 2021-04-10 10:40 | EDM.PDOC ---
ED HPI GENERAL MEDICAL PROBLEM - General Chief Complaint: Respiratory Problem Stated Complaint: COUGH,FEVER,CHILLS Time Seen by Provider: 04/10/21 10:10 Source of Information: Reports: Patient History Limitations: Reports: No Limitations - History of Present Illness INITIAL COMMENTS - FREE TEXT/NARRATIVE: HISTORY AND PHYSICAL: History of present illness: As stated above the patient is a 65-year-old female who presents to the emergency department for complaints of nausea, diarrhea horrible taste, and dizziness for the last 8 days. The patient's was diagnosed with COVID- 19 on 04/08/2021. He began having symptoms on 03/28/2021. The patient states that her appetite has been very poor and she just does not feel like eating or drinking. The patient has an ileostomy, she has had for 40 years due to ulcerative colitis treatment. The patient states she normally has 4-5 pasty stools per day but has had liquid stools for the last 8 days. The patient has not used any [id number] medication to treat this. The patient denies any shortness of breath or cough. She states that she has just been ran down and assumed that she had COVID-19 as her was diagnosed with this. Patient denies any headache, change in vision, syncope or near syncope. Denies any chest pain, back pain, shortness of breath or cough. Denies any abdominal pain, vomiting, constipation or dysuria. Has not noted any blood in urine or stool. Review of systems: As per history of present illness and below otherwise all systems reviewed and negative. Past medical history: As per history of present illness and as reviewed below otherwise noncontributory. Surgical history: As per history of present illness and as reviewed below otherwise noncontributory. Social history: See social history for further information Family history: As per history of present illness and as reviewed below otherwise noncontributory. Physical exam: General: Well developed and well nourished. Alert and orientated x 3. Nontoxic in appearance and in no acute distress. Vital signs are stable and have been reviewed by me. Nursing notes were reviewed. HEENT: Atraumatic, normocephalic, pupils equal and reactive bilaterally, negative for conjunctival pallor or scleral icterus, mucous membranes moist, TMs normal bilaterally, throat clear, neck supple, nontender, trachea midline. No drooling or trismus noted. No meningeal signs. No hot potato voice noted. Lungs: Clear to auscultation bilaterally. No wheezes, rales, or rhonchi. Chest nontender, left mastectomy. Normal work of breathing, no accessory muscles used. Heart: S1S2, regular rate and rhythm without overt murmur, gallops, or rubs. No JVD. No peripheral edema Abdomen: Soft, nondistended, nontender. Normoactive bowel sounds. Negative for masses or costovertebral tenderness. Skin: Intact, warm, dry. No lesions or rashes noted. Hematologic: No petechiae or purpra. Mucosa appropriate color and normal nail bed color and refill. Extremities: Atraumatic, moves all extremities per self without difficulty or deficits, negative for cords or calf pain. Neurovascular unremarkable. Neuro: Awake, alert, oriented. Cranial nerves II through XII unremarkable. Cerebellum unremarkable. Motor and sensory unremarkable throughout. Exam nonfocal. Psychiatric: Mood and affect are appropriate. Normal thought process. Answering questions appropriately. Notes: *This patient was seen and evaluated during the 2019 SARS-CoV-2 novel coronavirus pandemic period. Community viral transmission is ongoing at time of this encounter and the emergency department is operating under pandemic response procedures. As stated above the patient is a 61-year-old stool. Taste, and dizziness for the last 8 days. The patient's was recently diagnosed with Covid and the patient said she has Covid, too. The patient has does not have any shortness of breath and her SPO2 is 94% on room air. Patient does have a temperature of 101.1 orally, but does not feel the need for Tylenol or Motrin at this time. The patient's heart rate is 103 but this is most likely due to her fever. The patient's exam is unremarkable. I will treat the patient's nausea with IV fluids and Zofran. I will do a Covid work-up. The patient is agreeable to this plan. Dr. Vanessa interpretation of EKG is normal sinus rhythm rate of 97 no acute ischemia right axis deviation. The patient's CBC is remarkable for a white blood cell count of 3.09. The patient's CMP is hyponatremia with a sodium of 120. The patient was treated with 1L normal saline. The patient's chloride is 90 patient's creatinine is 1.2 with a magnesium of 2.5. The patient has a slightly elevated glucose of 122. Patient's urine is normal. The patient's negative for influenza and positive for COVID-19. Chest x-ray Impression: Hyperinflation and chronic interstitial changes with basilar atelectasis versus scar. Circumscribed mass lesions in the left upper and right upper lobes are appreciated which could represent calcified granuloma; however, if there remains persistent clinical concern recommend contrast enhanced CT of the chest for improved characterization. I educated the patient on her test results and the need to follow-up with her primary care regarding the calcified granuloma. The patient verbalized understanding of the need to follow-up. Patient states that she feels somewhat better after receiving Zofran and IV fluids. As the patient is 7 days out from her symptom onset I have given her a monoclonal antibody fact sheet and obtained her consent for outpatient infusion of the monoclonal antibodies. The patient is aware of the risk and benefits. I discussed with the patient in detail of when she would need to return to the emergency department. If she would to have bluish lips or her SPO2 would drop below 90%. Or if the patient does not tolerate oral fluids she does need to return to the emergency department. The patient is agreeable with this discharge plan. I have talked with the patient about today's findings, in addition to providing specific details for plan of care. Reassessment at the time of disposition demonstrates that the patient is in no acute distress. The patient is stable for discharge, counseling was provided and we discussed in great detail signs and symptoms that would prompt them to return to the Emergency Department. Medication, follow up and supportive care measures were reviewed and discussed. Voices understanding and is agreeable to plan of care. Denies any further questions or concerns at this time. Diagnostics: CBC, CMP, EKG, chest x-ray, COVID-19/flu swab, urinalysis Therapeutics: Fluids, Zofran Prescription: Zofran 4 mg ODT every 6 hours as needed for nausea Impression: COVID-19 1. Your COVID-19 screening is positive. That means you do have the coronavirus and you are considered contagious. Your vital signs and oxygen saturation are well enough that you were able to monitor your symptoms at home. Continue to monitor for trouble breathing, new confusion or inability to arouse, bluish lips or face or any of the other symptoms we discussed -if this occurs please return to the emergency room. 1b. Your sodium was low at 128 and we treated you with IV fluids. You need to continue to drink fluids. I have prescribed Zofran 4 mg every 6 hours as needed for nausea was sent to [facility]. As we discussed eat foods that are high in sodium such as chicken noodle soup. As for your diarrhea with your ileostomy I would advise taking Imodium [id number]. Continue this until y ou get your stools down to 4-5 a day which is your normal. And as we discussed if you are unable to take fluids or become short of breath or your oxygen saturation drops below 90% please return to the emergency department. 1c. I have sent a prescription for you to have the monoclonal antibodies on an outpatient basis. They will be calling you so make sure they do not answer your phone. 2. Please self quarantine until cleared by [facility]. Inform any persons that you have been in contact with since you started becoming symptomatic that you have tested positive; they should be made aware and take the appropriate steps as needed. 3. You can take NyQuil during the evening to help get a restful night sleep. May alternate Tylenol and ibuprofen as needed for pain and fever management. 4. The [facility] department will be calling you and following up with you. The [employer] Hotline phone number , They are open Tuesday - Tuesday 7am - 7pm. Follow up with your primary care provider for re-evaluation and re-testing after the 10 day quarantine and discuss when you should be seen. Definitive disposition and diagnosis as appropriate pending reevaluation and re view of above. - Related Data Allergies Allergy/AdvReac Type Severity Reaction Status Date / Time antibiotics Allergy Other Uncoded 04/10/21 10:36 Home Meds: Home Meds Olga Lidia Aspirin 1 - 2 tab PO ASDIRECTED PRN 08/10/17 [History] [place] Extract 1 cap PO BID 08/10/17 [History] Wellness Essential Oils 1 cap PO DAILY 08/10/17 [History] Ondansetron [Zofran ODT] 4 mg PO Q6H PRN #10 tab.dis 04/10/21 [Rx] Past Medical History HEENT History: Reports: Other (See Below) Other HEENT History: wears glasses Gastrointestinal History: Reports: Inflammatory Bowel Disease Other Gastrointestinal History: hx of Ulcerative Colitis, s/p total colectomy with ileostomy Endocrine/Metabolic History: Reports: Obesity/BMI 30+ Hematologic History: Reports: Other (See Below) Other Hematologic History: states hx of systemic yeast infection after taking antibiotics in 2002- has not taken antibiotics since Oncologic (Cancer) History: Reports: Breast (infiltrating ductal carcinoma left breast) Other Oncologic History: currently - Past Surgical History Head Surgeries/Procedures: Reports: None GI Surgical History: Reports: Colon Other GI Surgeries/Procedures: hx of Subtotal Colectomy with Ileostomy Female Surgical History: Reports: Cystectomy Other Female Surgeries/Procedures: hx of ovarian cystectiomy ED ROS GENERAL - Review of Systems Review Of Systems: Comprehensive ROS is negative, except as noted in HPI. ED EXAM, GENERAL - Physical Exam Exam: See Below (See dictation) Course - Vital Signs Last Recorded V/S: Last Vital Signs Temp 101.1 F H 04/10/21 10:41 Pulse 72 04/10/21 10:41 Resp 20 04/10/21 10:41 BP 135/83 04/10/21 10:41 Pulse Ox 97 04/10/21 10:41 - Orders/Labs/Meds Orders: Active Orders 24 hr Category Date Time Status Saline Lock Insert [OM.PC] Stat Oth 04/10/21 10:39 Ordered Labs: Laboratory Tests 04/10/21 04/10/21 04/10/21 Range/Units 10:40 11:11 11:11 WBC 3.09 L (4.0-11.0) K/uL RBC 5.11 (4.30-5.90) M/uL Hgb 15.0 (12.0-16.0) g/dL Hct 41.9 (36.0-46.0) % MCV 82.0 (80.0-98.0) fL MCH 29.4 (27.0-32.0) pg MCHC 35.8 (31.0-37.0) g/dL RDW Std Deviation 41.0 (28.0-62.0) fl RDW Coeff of Lex 14 (11.0-15.0) % Plt Count 158 (150-400) K/uL MPV 9.90 (7.40-12.00) fL Neut % (Auto) 74.7 (48.0-80.0) % Lymph % (Auto) 12.0 L (16.0-40.0) % [place] % (Auto) 13.3 (0.0-15.0) % Eos % (Auto) 0.0 (0.0-7.0) % Baso % (Auto) 0.0 (0.0-1.5) % Neut # (Auto) 2.3 (1.4-5.7) K/uL Lymph # (Auto) 0.4 L (0.6-2.4) K/uL [place] # (Auto) 0.4 (0.0-0.8) K/uL Eos # (Auto) 0.0 (0.0-0.7) K/uL Baso # (Auto) 0.0 (0.0-0.1) K/uL Nucleated RBC % 0.0 /100WBC Nucleated RBCs # 0 K/uL Sodium 128 L (136-145) mmol/L Potassium 3.9 (3.5-5.1) mmol/L Chloride 90 L (98-107) mmol/L Carbon Dioxide 23.9 (21.0-32.0) mmol/L BUN 16 (7.0-18.0) mg/dL Creatinine 1.2 H (0.6-1.0) mg/dL Est Cr Clr Drug Dosing TNP Estimated GFR (MDRD) 45.2 ml/min Glucose 122 H (74-106) mg/dL Calcium 8.9 (8.5-10.1) mg/dL Magnesium 2.5 H (1.8-2.4) mg/dL Total Bilirubin 0.7 (0.2-1.0) mg/dL AST 31 (15-37) IU/L ALT 30 (14-63) IU/L Alkaline Phosphatase 72 (46-116) U/L Total Protein 8.5 H (6.4-8.2) g/dL Albumin 4.1 (3.4-5.0) g/dL Globulin 4.4 H (2.6-4.0) g/dL Albumin/Globulin Ratio 0.9 (0.9-1.6) Urine Color Urine Appearance Urine pH (5.0-8.0) Ur Specific [place] (1.001-1.035) Urine Protein (NEGATIVE) mg/dL Urine Glucose (UA) (NEGATIVE) mg/dL Urine Ketones (NEGATIVE) mg/dL Urine Occult Blood (NEGATIVE) Urine Nitrite (NEGATIVE) Urine Bilirubin (NEGATIVE) Urine Urobilinogen (<2.0) EU/dL Ur Leukocyte Esterase (NEGATIVE) Urine RBC (0-2/HPF) Urine WBC (0-5/HPF) Ur Epithelial Cells (NONE-FEW) Urine Bacteria (NEGATIVE) Influenza Type A RNA NEGATIVE (NEGATIVE) Influenza Type B RNA NEGATIVE (NEGATIVE) SARS-CoV-2 RNA (LATIA) POSITIVE H (NEGATIVE) 04/10/21 Range/Units 12:20 WBC (4.0-11.0) K/uL RBC (4.30-5.90) M/uL Hgb (12.0-16.0) g/dL Hct (36.0-46.0) % MCV (80.0-98.0) fL MCH (27.0-32.0) pg MCHC (31.0-37.0) g/dL RDW Std Deviation (28.0-62.0) fl RDW Coeff of Lex (11.0-15.0) % Plt Count (150-400) K/uL MPV (7.40-12.00) fL Neut % (Auto) (48.0-80.0) % Lymph % (Auto) (16.0-40.0) % [place] % (Auto) (0.0-15.0) % Eos % (Auto) (0.0-7.0) % Baso % (Auto) (0.0-1.5) % Neut # (Auto) (1.4-5.7) K/uL Lymph # (Auto) (0.6-2.4) K/uL [place] # (Auto) (0.0-0.8) K/uL Eos # (Auto) (0.0-0.7) K/uL Baso # (Auto) (0.0-0.1) K/uL Nucleated RBC % /100WBC Nucleated RBCs # K/uL Sodium (136-145) mmol/L Potassium (3.5-5.1) mmol/L Chloride (98-107) mmol/L Carbon Dioxide (21.0-32.0) mmol/L BUN (7.0-18.0) mg/dL Creatinine (0.6-1.0) mg/dL Est Cr Clr Drug Dosing Estimated GFR (MDRD) ml/min Glucose (74-106) mg/dL Calcium (8.5-10.1) mg/dL Magnesium (1.8-2.4) mg/dL Total Bilirubin (0.2-1.0) mg/dL AST (15-37) IU/L ALT (14-63) IU/L Alkaline Phosphatase (46-116) U/L Total Protein (6.4-8.2) g/dL Albumin (3.4-5.0) g/dL Globulin (2.6-4.0) g/dL Albumin/Globulin Ratio (0.9-1.6) Urine Color YELLOW Urine Appearance CLEAR Urine pH 6.0 (5.0-8.0) Ur Specific [place] <= 1.005 (1.001-1.035) Urine Protein NEGATIVE (NEGATIVE) mg/dL Urine Glucose (UA) NEGATIVE (NEGATIVE) mg/dL Urine Ketones NEGATIVE (NEGATIVE) mg/dL Urine Occult Blood NEGATIVE (NEGATIVE) Urine Nitrite NEGATIVE (NEGATIVE) Urine Bilirubin NEGATIVE (NEGATIVE) Urine Urobilinogen 0.2 (<2.0) EU/dL Ur Leukocyte Esterase TRACE H (NEGATIVE) Urine RBC NONE SEEN (0-2/HPF) Urine WBC 0-2 (0-5/HPF) Ur Epithelial Cells RARE (NONE-FEW) Urine Bacteria NOT SEEN (NEGATIVE) Influenza Type A RNA (NEGATIVE) Influenza Type B RNA (NEGATIVE) SARS-CoV-2 RNA (LATIA) (NEGATIVE) Meds: Medications Discontinued Medications Generic Name Dose Route Start Last Admin Trade Name Freq PRN Reason Stop Dose Admin Sodium Chloride 1,000 mls @ 999 mls/hr 04/10/21 10:39 04/10/21 11:17 Normal Saline IV 04/10/21 11:39 999 mls/hr .BOLUS ONE Administration Loperamide HCl 2 mg 04/10/21 12:38 04/10/21 13:08 Loperamide 2 Mg Cap PO 2 mg ASDIRECTED PRN Administration Diarrhea Ondansetron HCl 4 mg 04/10/21 10:39 04/10/21 11:14 Ondansetron 4 Mg/2 Ml Sdv IVPUSH 04/10/21 10:40 4 mg ONETIME ONE Administration Sodium Chloride 10 ml 04/10/21 10:38 04/10/21 11:17 Sodium Chloride 0.9% 10 Ml Syringe FLUSH 10 ml ASDIRECTED PRN Administration Keep Vein Open Sodium Chloride 2.5 ml 04/10/21 10:38 04/10/21 11:16 Sodium Chloride 0.9% 2.5 Ml Syringe FLUSH 2.5 ml ASDIRECTED PRN Administration Keep Vein Open Departure - Departure Time of Disposition: 12:33 Disposition: Home, Self-Care 01 Condition: Good Clinical Impression: COVID-19 - Discharge Information *PRESCRIPTION DRUG MONITORING PROGRAM REVIEWED*: Not Applicable *COPY OF PRESCRIPTION DRUG MONITORING REPORT IN PATIENT ROSARIO: Not Applicable Prescriptions: Ondansetron [Zofran ODT] 4 mg PO Q6H PRN #10 tab.dis PRN Reason: Nausea Instructions: COVID-19 Frequently Asked Questions, COVID-19: What to Do If You Are Sick- [facility] (07/09/2020) Referrals: PCP,None [Primary Care Provider] - Forms: ED Department Discharge Additional Instructions: The following information is given to patients seen in the emergency department who are being discharged to home. This information is to outline your options for follow-up care. We provide all patients seen in our emergency department with a follow-up referral. The need for follow-up, as well as the timing and circumstances, are variable depending upon the specifics of your emergency department visit. If you don't have a primary care physician on staff, we will provide you with a referral. We always advise you to contact your personal physician following an emergency department visit to inform them of the circumstance of the visit and for follow-up with them and/or the need for any referrals to a consulting specialist. The emergency department will also refer you to a specialist when appropriate. This referral assures that you have the opportunity for follow-up care with a specialist. All of these measure are taken in an effort to provide you with optimal care, which includes your follow-up. Under all circumstances we always encourage you to contact your private physician who remains a resource for coordinating your care. When calling for follow-up care, please make the office aware that this follow-up is from your recent emergency room visit. If for any reason you are refused follow-up, please contact the [facility] Emergency Department at and asked to speak to the emergency department charge nurse. [facility] - Primary Care [address] [place] [address] [facility] [address] [place] [address] 1. Your COVID-19 screening is positive. That means you do have the coronavirus and you are considered contagious. Your vital signs and oxygen saturation are well enough that you were able to monitor your symptoms at home. Continue to monitor for trouble breathing, new confusion or inability to arouse, bluish lips or face or any of the other symptoms we discussed -if this occurs please return to the emergency room. 1b. Your sodium was low at 128 and we treated you with IV fluids. You need to continue to drink fluids. I have prescribed Zofran 4 mg every 6 hours as needed for nausea was sent to and pharmacy. As we discussed eat foods that are high in sodium such as chicken noodle soup. As for your diarrhea with your ileostomy I would advise taking Imodium [id number]. Continue this until you get your stools down to 4-5 a day which is your normal. And as we discussed if you are unable to take fluids or become short of breath or your oxygen saturation drops below 90% please return to the emergency department. 2. Please self quarantine until cleared by [facility]. Inform any persons that you have been in contact with since you started becoming symptomatic that you have tested positive; they should be made aware and take the appropriate steps as needed. 3. You can take NyQuil during the evening to help get a restful night sleep. May alternate Tylenol and ibuprofen as needed for pain and fever management. 4. The [facility] department will be calling you and following up with you. The [place] COVID 19 Hotline phone number , They are open Tuesday - Tuesday 7am - 7pm. Follow up with your primary care provider for re-evaluation and re-testing after the 10 day quarantine and discuss when you should be seen. Sepsis Event Note (ED) - Focused Exam Vital Signs: Vital Signs Temp Pulse Resp BP Pulse Ox 04/10/21 10:41 101.1 F H 72 20 135/83 97 - My Orders Last 24 Hours: My Active Orders 04/10/21 10:39 Saline Lock Insert [OM.PC] Stat - Assessment/Plan Last 24 Hours: My Active Orders 04/10/21 10:39 Saline Lock Insert [OM.PC] Stat
[2021-04-10 11:27] LABS: CORONAVIRUS COVID-19 NAA POSITIVE (NEGATIVE); INFLUENZA A NAA NEGATIVE (NEGATIVE); INFLUENZA B NAA NEGATIVE (NEGATIVE)
[2021-04-10 11:58] LABS: BLOOD UREA NITROGEN,BUN 16 mg/dL (7.0-18.0); CARBON DIOXIDE,CO2 23.9 mmol/L (21.0-32.0); CHLORIDE,CL 90 mmol/L (98-107); GLUCOSE RANDOM 122 mg/dL (74-106); POTASSIUM,K 3.9 mmol/L (3.5-5.1); SODIUM,NA 128 mmol/L (136-145)
--- NOTE | 2021-04-10 12:03 | CR ---
Indication: Cough Comparison: None available. Technique: Single AP view chest Findings: There is hyperinflation and chronic interstitial change. There is basilar atelectasis versus scar. There are circumscribed mass lesions within the left upper greater than right upper lobes which may represent calcified granuloma. There is no pneumothorax or pleural effusion. The cardiomediastinal silhouette is within normal limits. The bony thorax is grossly intact. Impression: Hyperinflation and chronic interstitial changes with basilar atelectasis versus scar. Circumscribed mass lesions in the left upper and right upper lobes are appreciated which could represent calcified granuloma; however, if there remains persistent clinical concern recommend contrast enhanced CT of the chest for improved characterization. Dictated by Saul Johnson MD @ 04/10/2021 12:02:35 PM (Electronically Signed)
[2021-04-10] MEDS ORDERED: Loperamide 2 MG Cap PO PRN (12:38)
--- NOTE | 2021-04-10 13:09 | PCM.EKG ---
#1 Interpretation EKG Date: 04/10/21 Time: 11:15 EKG Interpretation Comments: Normal sinus rhythm rate of 97 no acute ischemia right axis deviation
== END 2021-04-10 13:20 | disposition home or self-care (01) ==
LOC: MW.ED 10:08
DX: U07.1 COVID-19 (principal); E66.9 Obesity, unspecified; Z88.1 Allergy status to other antibiotic agents; Z68.30 Body mass index [BMI] 30.0-30.9, adult
CPT/HCPCS: 0240U; 36415; 71045; 80053; 81001; 83735; 85025; 96374; 99284; A9270; J2405; J7030

== ENCOUNTER 2021-04-14 11:57 | Emergency (ER) | payer BC, MEDICARE ==
[2021-04-14] MEDS ORDERED: Sodium Chloride 0.9% 1,000 ML IV ONE ×2 (12:17→13:28)
--- NOTE | 2021-04-14 12:20 | EDM.PDOC ---
ED HPI GENERAL MEDICAL PROBLEM - General Chief Complaint: General Stated Complaint: NAUSEA, CANT KEEP ANY FLUIDS DOWN, WEAK Time Seen by Provider: 04/14/21 12:00 Source of Information: Reports: Patient History Limitations: Reports: No Limitations - History of Present Illness INITIAL COMMENTS - FREE TEXT/NARRATIVE: 65-year-old female past medical history ulcerative colitis status post ileostomy, multiple medication allergies, recently diagnosed COVID-19 infection presents for nausea, vomiting, inability to tolerate p.o. Patient denies any chest pain or shortness of breath. She denies any associated abdominal pain. She does note some body aches. She was seen in the emergency department and written a prescription for Zofran over the weekend. 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 She notes continued nausea. She denies any changes in urination, denies an anuria, dark urine, denies decreased urinary frequency. - Related Data Allergies Allergy/AdvReac Type Severity Reaction Status Date / Time antibiotics Allergy Other Uncoded 04/14/21 12:09 Home Meds: Home Meds Olga Lidia Aspirin 1 - 2 tab PO ASDIRECTED PRN 08/10/17 [History] Verbank Faxon Extract 1 cap PO BID 08/10/17 [History] Wellness Essential Oils 1 cap PO DAILY 08/10/17 [History] Ondansetron [Zofran ODT] 4 mg PO Q6H PRN #10 tab.dis 04/10/21 [Rx] Past Medical History HEENT History: Reports: Other (See Below) Other HEENT History: wears glasses Gastrointestinal History: Reports: Inflammatory Bowel Disease Other Gastrointestinal History: hx of Ulcerative Colitis, s/p total colectomy with ileostomy Endocrine/Metabolic History: Reports: Obesity/BMI 30+ Hematologic History: Reports: Other (See Below) Other Hematologic History: states hx of systemic yeast infection after taking antibiotics in 2002- has not taken antibiotics since Oncologic (Cancer) History: Reports: Breast Other Oncologic History: currently - Past Surgical History Head Surgeries/Procedures: Reports: None GI Surgical History: Reports: Colon Other GI Surgeries/Procedures: hx of Subtotal Colectomy with Ileostomy Female Surgical History: Reports: Cystectomy Other Female Surgeries/Procedures: hx of ovarian cystectiomy Social & Family History - Family History Family Medical History: No Pertinent Family History - Caffeine Use Caffeine Use: Reports: None ED ROS GENERAL - Review of Systems Review Of Systems: Comprehensive ROS is negative, except as noted in HPI. ED EXAM, GENERAL - Physical Exam Exam: See Below Exam Limited By: No Limitations General Appearance: Alert, WD/WN, No Apparent Distress Ears: Hearing Grossly Normal Throat/Mouth: Normal Voice, No Airway Compromise Head: Atraumatic, Normocephalic Respiratory/Chest: No Respiratory Distress, Lungs Clear, Normal Breath Sounds, No Accessory Muscle Use Cardiovascular: Normal Peripheral Pulses, Regular Rate, Rhythm GI/Abdominal: Soft, Non-Tender, Other (iliostomy well appearing) Extremities: Normal Inspection Neurological: Alert, Normal Cognition, Normal Gait Psychiatric: Normal Affect, Normal Mood Skin Exam: Warm, Dry, Intact, Normal Color Course - Vital Signs Last Recorded V/S: Last Vital Signs Temp 96.5 F L 04/14/21 12:10 Pulse 94 04/14/21 12:10 Resp 18 04/14/21 12:10 BP 120/76 04/14/21 12:10 Pulse Ox 92 L 04/14/21 12:10 - Orders/Labs/Meds Orders: Active Orders 24 hr Category Date Time Status Sodium Chloride 0.9% [Normal Saline] 1,000 ml Med 04/14/21 13:28 Active IV .Bolus Saline Lock Insert [OM.PC] Stat Oth 04/14/21 12:17 Ordered Medication Orders Sodium Chloride (Normal Saline) 1,000 mls @ 999 mls/hr IV .Bolus ONE Stop: 04/14/21 14:28 Labs: Laboratory Tests 04/14/21 04/14/21 Range/Units 12:54 12:54 WBC 4.26 (4.0-11.0) K/uL RBC 4.84 (4.30-5.90) M/uL Hgb 14.1 (12.0-16.0) g/dL Hct 38.6 (36.0-46.0) % MCV 79.8 L (80.0-98.0) fL MCH 29.1 (27.0-32.0) pg MCHC 36.5 (31.0-37.0) g/dL RDW Std Deviation 39.6 (28.0-62.0) fl RDW Coeff of Lex 14 (11.0-15.0) % Plt Count 182 (150-400) K/uL MPV 10.00 (7.40-12.00) fL Neut % (Auto) 78.2 (48.0-80.0) % Lymph % (Auto) 11.5 L (16.0-40.0) % Bledsoe % (Auto) 10.1 (0.0-15.0) % Eos % (Auto) 0.0 (0.0-7.0) % Baso % (Auto) 0.2 (0.0-1.5) % Neut # (Auto) 3.3 (1.4-5.7) K/uL Lymph # (Auto) 0.5 L (0.6-2.4) K/uL Bledsoe # (Auto) 0.4 (0.0-0.8) K/uL Eos # (Auto) 0.0 (0.0-0.7) K/uL Baso # (Auto) 0.0 (0.0-0.1) K/uL Nucleated RBC % 0.0 /100WBC Nucleated RBCs # 0 K/uL Sodium 125 L (136-145) mmol/L Potassium 4.0 (3.5-5.1) mmol/L Chloride 89 L (98-107) mmol/L Carbon Dioxide 20.7 L (21.0-32.0) mmol/L BUN 16 (7.0-18.0) mg/dL Creatinine 1.0 (0.6-1.0) mg/dL Est Cr Clr Drug Dosing 42.89 mL/min Estimated GFR (MDRD) 55.8 ml/min Glucose 102 (74-106) mg/dL Calcium 8.7 (8.5-10.1) mg/dL Magnesium 2.4 (1.8-2.4) mg/dL Total Bilirubin 0.8 (0.2-1.0) mg/dL AST 38 H (15-37) IU/L ALT 36 (14-63) IU/L Alkaline Phosphatase 56 (46-116) U/L Total Protein 7.9 (6.4-8.2) g/dL Albumin 3.4 (3.4-5.0) g/dL Globulin 4.5 H (2.6-4.0) g/dL Albumin/Globulin Ratio 0.8 L (0.9-1.6) Meds: Medications Generic Name Dose Route Start Last Admin Trade Name Cory PRN Reason Stop Dose Admin Sodium Chloride 1,000 mls @ 999 mls/hr 04/14/21 13:28 Normal Saline IV 04/14/21 14:28 .Bolus ONE Discontinued Medications Generic Name Dose Route Start Last Admin Trade Name Vikramq PRN Reason Stop Dose Admin Sodium Chloride 1,000 mls @ 999 mls/hr 04/14/21 12:17 04/14/21 12:56 Normal Saline IV 04/14/21 13:17 999 mls/hr .Bolus ONE Administration - Re-Assessments/Exams Free Text/Narrative Re-Assessment/Exam: 04/14/21 12:19 We will check basic labs. Will give IV fluid bolus. Offered patient antiemetics, however, patient would like to avoid using any medications if at all possible. 04/14/21 13:30 Labs do show hyponatremia worsening since last ER visit; 128 down to 125. Will give additional 1-L IVFB and anticipate d/c with antiemetics. Departure - Departure Time of Disposition: 13:42 Disposition: Admitted As Inpatient 67 Condition: Good Clinical Impression: COVID-19 - Discharge Information Instructions: COVID-19 Vaccine Information, COVID-19: What to Do If You Are Sick- [facility] [place]07/09[place] Forms: ED Department Discharge Additional Instructions: Your labs do show evidence of dehydration and low sodium level. You were given 2 L of IV fluids in the emergency department. You can take ondansetron which was prescribed over the weekend to help with your nausea. If you are unable to tolerate fluids you should at least try to drink liquids. You can drink either water, or electrolyte-containing solutions such as Pedialyte or Gatorade. The best way to prevent serious illness, hospitalization, permanent disability, and from COVID-19 is to get vaccinated. There are several highly effective vaccines available. Once you have recovered from your Covid infection you should get vaccinated not only for yourself but for your country and your community. Only you can stop this pandemic, and by choosing to remain unvaccinated, you are part of the problem and not the solution. The following information is given to patients seen in the emergency department who are being discharged to home. This information is to outline your options for follow-up care. We provide all patients seen in our emergency department with a follow-up referral. The need for follow-up, as well as the timing and circumstances, are variable depending upon the specifics of your emergency department visit. If you don't have a primary care physician on staff, we will provide you with a referral. We always advise you to contact your personal physician following an emergency department visit to inform them of the circumstance of the visit and for follow-up with them and/or the need for any referrals to a consulting specialist. The emergency department will also refer you to a specialist when appropriate. This referral assures that you have the opportunity for follow-up care with a specialist. All of these measure are taken in an effort to provide you with optimal care, which includes your follow-up. Under all circumstances we always encourage you to contact your private physician who remains a resource for coordinating your care. When calling for follow-up care, please make the office aware that this follow-up is from your recent emergency room visit. If for any reason you are refused follow-up, please contact the [facility] Emergency Department at and asked to speak to the emergency department charge nurse. Please follow up with your primary care physician. If you do not have a primary care physician, see below: [facility] [address] [place] [id number] [facility] [address] [place] [address] [facility] [address] [place] [id number] Sepsis Event Note (ED) - Focused Exam Vital Signs: Vital Signs Temp Pulse Resp BP Pulse Ox 04/14/21 12:10 96.5 F L 94 18 120/76 92 L - My Orders Last 24 Hours: My Active Orders 04/14/21 12:17 Saline Lock Insert [OM.PC] Stat 04/14/21 13:28 Sodium Chloride 0.9% [Normal Saline] 1,000 ml IV .Bolus - Assessment/Plan Last 24 Hours: My Active Orders 04/14/21 12:17 Saline Lock Insert [OM.PC] Stat 04/14/21 13:28 Sodium Chloride 0.9% [Normal Saline] 1,000 ml IV .Bolus
[2021-04-14 13:26] LABS: CARBON DIOXIDE,CO2 20.7 mmol/L (21.0-32.0)
== END 2021-04-14 14:49 | disposition critical access hospital (66) ==
LOC: MW.ED 11:57
DX: U07.1 COVID-19 (principal); E66.9 Obesity, unspecified; Z68.35 Body mass index [BMI] 35.0-35.9, adult; Z79.899 Other long term (current) drug therapy
CPT/HCPCS: 80053; 83735; 85025; 99284; J7030